=== PATIENT | male | born 2000 | race African-American/Black ===

== ENCOUNTER 2021-11-15 09:15 | Outpatient (RCR) | payer OTHER | END 2021-11-19 | disposition home or self-care (01) | LOC: PT.GENESIS | DX: T33.8 Superficial frostbite of ankle, foot, and toe(s) (principal); X58.XXXD Exposure to other specified factors, subsequent encounter ==

== ENCOUNTER → 2021-12-19 | Outpatient (RCR) | payer OTHER | END | disposition home or self-care (01) | LOC: PT.GENESIS | DX: T33.8 Superficial frostbite of ankle, foot, and toe(s) (principal) ==

== ENCOUNTER 2022-01-16 11:30 | Outpatient (RCR) | payer OTHER | END 2022-01-19 | disposition home or self-care (01) | LOC: PT.GENESIS | DX: T33.8 Superficial frostbite of ankle, foot, and toe(s) (principal) ==

== ENCOUNTER 2022-02-14 14:00 | Outpatient (RCR) | payer OTHER | END 2022-02-19 | disposition home or self-care (01) | LOC: PT.GENESIS | DX: T33.8 Superficial frostbite of ankle, foot, and toe(s) (principal) ==